=== PATIENT | male | born 1970 | race Caucasian/White ===

== ENCOUNTER → 2018-01-10 13:51 | Outpatient (CLI) | payer OTHER, MEDICAID ==
--- NOTE | ~2018-01-10 | ST ---
PATIENT:MIGUEL BEACH MEDICAL RECORD: [id number] SEX: M LOCATION:[facility] ORDER #: ADMISSION DATE: 01/10/18 AGE OF PATIENT: 47 REFERRING PHYSICIAN: INTERPRETING PHYSICIAN: DEON OLIVERA MD DATE OF SERVICE: 01/10/2018 EKG STRESS TEST INDICATION: Shortness of breath, abnormal ECG. He was exercised on standard Ronald protocol for 10 minutes, terminated due to achieving a max target heart rate response. The patient did have [address] depression with peak exercise. OVERALL IMPRESSION: Positive for inducible ischemia at adequate cardiac workload. We would repeat with the nuclear imaging or proceed with coronary angiography depending upon clinical situation. TRANSINT:[id number] Voice Confirmation ID: [id number] DOCUMENT ID: [id number] DEON OLIVERA MD CC: [id number] DICTATION DATE: 01/11/18 1134 BELT POLISHER: 01/12/18 0540 [facility] CLI 01/10/18 [place] [id number] [place] [id number]
== END | disposition home or self-care (01) ==
LOC: D.HCCARDIO 13:51
DX: R06.09 Other forms of dyspnea (principal)

== ENCOUNTER → 2018-01-24 08:35 | Outpatient (CLI) | payer OTHER, MEDICAID ==
--- NOTE | ~2018-01-24 | ST ---
PATIENT:MIGUEL BEACH MEDICAL RECORD: [id number] SEX: M LOCATION:[facility] ORDER #: ADMISSION DATE: 01/24/18 AGE OF PATIENT: 47 REFERRING PHYSICIAN: INTERPRETING PHYSICIAN: DEON OLIVERA MD DATE OF SERVICE: 01/24/2018 PROCEDURE: Nuclear stress test. INDICATION: Chest pain, abnormal ECG stress test, hypertension, shortness of breath. She was exercised on standard Ronald protocol for 10 minutes achieving greater than 85% maxillary heart rate response with 33 mCi of sestamibi injected at peak stress. Rest images were done previously with 11 mCi. FINDINGS: Gated SPECT reveals preserved ejection fraction at 60% with good wall motion and thickening and brightening throughout all segments. SPECT imaging Cardiolite was used as myocardial fusion agent. There is homogeneous uptake throughout all segments at rest and stress with no evidence of inducible ischemia or previous infarction. OVERALL IMPRESSION: 1. This is a normal nuclear stress test with no evidence of inducible ischemia or previous infarction. 2. Gated SPECT reveals a preserved ejection fraction at 60%. In this patient with ongoing symptomatology, the current scan does not suggest the presence of hemodynamically significant coronary artery disease. Evaluate noncardiac etiology of chest pain. TRANSINT:[id number] Voice Confirmation ID: [id number] DOCUMENT ID: [id number] DEON OLIVERA MD CC: MARY JANE PATINO DO [id number] DICTATION DATE: 01/25/18801 DIRECTOR EMERGENCY DEPARTMENT: 01/25/182055 [facility] CLI 01/24/18 [place] [id number] [place] [address]
== END | disposition home or self-care (01) ==
LOC: D.HCCARDIO 08:35
DX: R94.31 Abnormal electrocardiogram [ECG] [EKG] (principal)

== ENCOUNTER 2018-07-22 18:52 | Emergency (ER) | payer OTHER, MEDICAID ==
[2018-07-22 19:08] VITALS: BMI 28.9
[2018-07-22] MEDS ORDERED: BP PILL (19:09)
[2018-07-22 19:30] LABS: BASOPHILS 0.3 % (0-2); EOSINOPHILS 0.5 % (0-7); HEMATOCRIT 41.1 % (42.0-54.0); HEMOGLOBIN 14.8 g/dL (13.5-17.5); IMMATURE GRANULOCYTES 0.3 % (0-5); LYMPHOCYTES 12.4 % (15-50); MCH 31.6 pg (26.0-34.0); MCV 87.6 fL (80.0-100.0); MEAN PLATELET VOLUME 10.4 fL (7.4-10.4); MONOCYTES 7.9 % (2-11); NEUTROPHILS 78.6 % (40-80); PLATELET COUNT 174 10x3/uL (130-400); RBC 4.69 10x6/uL (4.20-6.10); RDW 12.7 % (11.5-14.5); WBC 14.4 10x3/uL (4.8-10.8)
[2018-07-22 19:39] LABS: APPEARANCE CLEAR (CLEAR); BILIRUBIN NEGATIVE (NEGATIVE); COLOR YELLOW (YELLOW); GLUCOSE NEGATIVE (NEGATIVE); KETONE NEGATIVE (NEGATIVE); NITRITE NEGATIVE (NEGATIVE); PROTEIN NEGATIVE (NEGATIVE); SPECIFIC GRAVITY 1.015 (1.005-1.020); UROBILINOGEN NORMAL (NORMAL)
[2018-07-22 19:40] LABS: BACTERIA FEW /hpf (NONE SEEN); WHITE CELLS - URINE OCC /hpf (0-5)
[2018-07-22 20:01] LABS: ALBUMIN 4.3 g/dL (3.4-5.0); ALKALINE PHOSPHATASE 56 U/L (46-116); ALT (SGPT) 43 U/L (10-68); BILIRUBIN - TOTAL 0.39 mg/dL (0.2-1.3); CALC OSMOLALITY 278 mosm/kg (275-300); CALCIUM 9.2 mg/dL (8.5-10.1); CHLORIDE - SERUM 103 mmol/L (98-107); CREATININE - SERUM 1.3 mg/dL (0.6-1.3); GLUCOSE 105 mg/dL (74-106); POTASSIUM - SERUM 3.9 mmol/L (3.5-5.1); PROTEIN - SERUM 8.4 g/dL (6.4-8.2); SODIUM 138 mmol/L (136-145); UREA NITROGEN 22 mg/dL (7-18); eGFR NON AFRICAN AMERICAN 63 mL/min (90-120)
[2018-07-22 20:03] LABS: AMYLASE - SERUM 42 U/L (25-115); LIPASE 123 U/L (73-393); TROPONIN-I < 0.017 ng/mL (0.000-0.060)
[2018-07-22] MEDS ORDERED: TORADOL10 MG PO (23:01)
[2018-07-22] MEDS ORDERED: FLOMAX0.4 MG PO (23:01)
[2018-07-22 23:21] VITALS: BP 188/106
[2018-07-24] MEDS ORDERED: HYDROCODON-ACE1 EAC7 PO (11:22)
[2018-07-24] MEDS ORDERED: NORVASC5 MG PO (11:23)
[2018-07-24] MEDS ORDERED: LOTENSIN20 MG PO (11:23)
[2018-07-24] MEDS ORDERED: TORADOL10 MG PO (11:25)
[2018-07-30 12:41] VITALS: BMI 25.8
== END 2018-07-22 23:20 | disposition home or self-care (01) ==
LOC: D.ER 18:52
PROVIDERS: Family Medicine
DX: N20.1 Calculus of ureter (principal)

== ENCOUNTER 2018-07-25 09:09 | Day surgery (SDC) | payer OTHER, MEDICAID ==
[~2018-07-25] VITALS: Ht 177.8 cm; Wt 90.3 kg
[~2018-07-25 09:09] MED LIST: BP PILL; FLOMAX0.4 MG PO; HYDROCODON-ACE1 EAC7 PO; LOTENSIN20 MG PO; NORVASC5 MG PO; TORADOL10 MG PO
[2018-07-25 11:26] LABS: HEMATOCRIT 39.5 % (42.0-54.0); HEMOGLOBIN 14.2 g/dL (13.5-17.5); MCH 31.5 pg (26.0-34.0); MCHC 35.9 g/dL (31.0-37.0); MCV 87.6 fL (80.0-100.0); RBC 4.51 10x6/uL (4.20-6.10); RDW 12.4 % (11.5-14.5)
[2018-07-25 11:53] VITALS: BP 170/97; Ht 177.8 cm; Wt 90.3 kg
--- NOTE | 2018-07-25 15:30 | NUR ---
REC'D FROM . FAMILY AT BEDSIDE. AMBULATED TO BATHROOM AND VOIDED WITHOUT DIFFICUTY. FL TRAY SERVED TO PATIENT.
--- NOTE | 2018-07-25 16:00 | NUR ---
TOLERATED FL DIET.
--- NOTE | 2018-07-25 16:35 | NUR ---
IV DC'D WITH CATHETER INTACT. WRITTEN AND VERBAL DC INST. GIVEN TO PT. VERBALIZED UNDERSTANDING.
--- NOTE | 2018-07-25 16:55 | NUR ---
DC'D HOME WITH FAMILY VIA PRIVATE VEHICLE. STABLE AT TIME OF DC.
--- NOTE | 2018-07-26 09:28 | OP ---
PATIENT NAME: MIGUEL BEACH MEDICAL RECORD: [id number] :70 LOCATION:[facility] ADMISSION DATE: SURGEON: RAMON LOPEZ MD DATE OF OPERATION: 07/25/2018 SURGEON: Ramon Lopez MD ANESTHESIA: General anesthesia by Leti Huynh CRNA. DIAGNOSIS: Right proximal ureteral stones times 2, largest is 7 mm in size. PROCEDURE: Right ESWL times 3000 shocks. Cystoscopy and right ureteral stent insertion 6-Mozambican x 26 cm with string attached. FINDINGS: Radiodense right proximal ureteral stones. These were pushed back into the renal pelvis during stent insertion. On cystoscopy, there was an elevated bladder neck of the prostate. Single ureteral orifices bilaterally with no bladder tumors. ESTIMATED BLOOD LOSS: None. CLINICAL HISTORY: This is a 47-year-old male, who came to the Emergency Room on 07/22/18 with acute right upper quadrant abdominal pain, nausea and vomiting. He has not had previous history of kidney stones. The CT scan of the abdomen and pelvis shows 2 stones at the right UP junction, the largest of which is 7 mm in size. There is hydronephrosis present. He comes today to have these stones treated with ESWL. We will also be inserting a right ureteral stent. He is not allergic to any medications. He was given Ancef automation technician to the OR. DESCRIPTION OF PROCEDURE: The patient was given induction of general anesthesia in supine position. He was then targeted in 2 planes and we could see the 2 stones. The stones were being shocks. In the meantime, we also prepped and draped him. A 21-Mozambican cystoscope with 30-degree lens was used for visualization. There are no penile urethral strictures. The prostate lateral lobes are not obstructive, but he does have a tall bladder neck. Going into the bladder, there are single ureteral orifices on each side. There are no bladder tumors. A Sensor wire was placed up the right ureteral orifice into the right renal pelvis. We had some obstruction at the level of the stones, but the stone gave way and the wire could get past them. In the process of dislodging the stones, the stones went back into the renal pelvis. Over the wire, we inserted the 6-Mozambican x 26 cm ureteral stent. Once the stent was in correct position, the wire was withdrawn entirely. The distal end of the stent was pushed into the bladder using the pusher. The scope was then used to empty the bladder and the scope was removed. The string on the distal end of stent is maintained and it hangs out of the urethra. It was tied to itself in a knot and cut shorter. The stones were retargeted and the remaining shocks were given to give a total of 3000 shocks. The stones were seen to break up. I will see him in followup in 2 weeks' time with a KUB. If the stone has broken up and completely left the system by that time, then the stent can be removed. TRANSINT:[id number] Voice Confirmation ID: [id number] DOCUMENT ID: [id number] OPERATIVE REPORT [id number] MIGUEL BEACH ROBERT S MD at 0928 CC: [id number] DICTATION DATE: 07/25/18 1453 CEMENT TRUCK DRIVER: 07/25/18 1601 [facility] 07/25/18 [facility] [address] [place] [address]
== END 2018-07-25 16:55 | disposition home or self-care (01) ==
LOC: D.OPS 09:09 → D.PAN 11:45 → D.OPS 11:45
PROVIDERS: Anesthesiology; ATTEND Urology
DX: N20.0 Calculus of kidney (principal)

== ENCOUNTER 2018-07-29 18:05 | Inpatient (IN) | payer OTHER, MEDICAID ==
[~2018-07-29] VITALS: Ht 177.8 cm; Wt 81.8 kg
[2018-07-29 18:53] LABS: BASOPHILS 0.1 % (0-2); EOSINOPHILS 0.3 % (0-7); HEMATOCRIT 34.5 % (42.0-54.0); HEMOGLOBIN 12.8 g/dL (13.5-17.5); IMMATURE GRANULOCYTES 0.2 % (0-5); LYMPHOCYTES 4.3 % (15-50); MCH 31.6 pg (26.0-34.0); MCHC 37.1 g/dL (31.0-37.0); MCV 85.2 fL (80.0-100.0); MEAN PLATELET VOLUME 11.1 fL (7.4-10.4); MONOCYTES 7.2 % (2-11); NEUTROPHILS 87.9 % (40-80); RBC 4.05 10x6/uL (4.20-6.10); RDW 12.5 % (11.5-14.5); WBC 16.4 10x3/uL (4.8-10.8)
[2018-07-29 19:03] LABS: PLATELET COUNT 129 10x3/uL (130-400)
[2018-07-29 19:06] LABS: APPEARANCE HAZY (CLEAR); BILIRUBIN NEGATIVE (NEGATIVE); COLOR YELLOW (YELLOW); GLUCOSE NEGATIVE (NEGATIVE); KETONE NEGATIVE (NEGATIVE); NITRITE NEGATIVE (NEGATIVE); PROTEIN 1+ mg/dL (NEGATIVE); SPECIFIC GRAVITY 1.015 (1.005-1.020); UROBILINOGEN NORMAL (NORMAL)
[2018-07-29 19:07] LABS: BACTERIA MANY /hpf (NONE SEEN); MUCUS <1+ /lpf (NONE SEEN); RED CELLS - URINE 25-50 /hpf (0-5); WHITE CELLS - URINE 25-50 /hpf (0-5)
[2018-07-29 19:08] LABS: ALBUMIN 2.9 g/dL (3.4-5.0); ANION GAP 13.9 mmol/L (8-16); BILIRUBIN - TOTAL 0.56 mg/dL (0.2-1.3); CALCIUM 8.6 mg/dL (8.5-10.1); CARBON DIOXIDE 26.2 mmol/L (21.0-32.0); CREATININE - SERUM 2.4 mg/dL (0.6-1.3); POTASSIUM - SERUM 3.1 mmol/L (3.5-5.1); PROTEIN - SERUM 7.8 g/dL (6.4-8.2)
--- NOTE | 2018-07-29 21:30 | NUR ---
VANCOMYCIN AND 1500ML BOLUS NS COMPLETE
--- NOTE | 2018-07-29 22:09 | NUR ---
RECEIVED PT TO ROOM 2128 VIA WHEELCHAIR, PT WAS ABLE TO TRANSFERED FROM WHEELCHAIR TO BED WITH STEADY GATE. PT A/O X4, RESP EVEN AND NONLABORED ON RA, ORIENTED PT TO ROOM AND CALL LIGHT. RT AC INFUSING NS AT 150. PT DENIES ANY PAIN OR NEEDS AT THIS TIME. WILL ASSESS PT AND START PLAN OF CARE.
[2018-07-30 00:47] VITALS: BMI 25.8
[2018-07-30 04:00] VITALS: BP 109/61
--- NOTE | 2018-07-30 06:01 | NUR ---
PT HAD AN ACCIDENT ON THE BED, REQUESTED SUPPLIES TO GET IN SHOWER. PROVIDED SUPPLIES FOR SHOWER AND COMPLETE LINEN CHANGE PROVIDED. PT DENIES ANY OTHER NEEDS AT THIS TIME. CALL LIGHT IN REACH, NAD NOTED.
[2018-07-30 06:05] LABS: BASOPHILS 0.1 % (0-2); HEMATOCRIT 33.9 % (42.0-54.0); IMMATURE GRANULOCYTES 0.4 % (0-5); LYMPHOCYTES 2.8 % (15-50); MCH 30.5 pg (26.0-34.0); MCHC 35.4 g/dL (31.0-37.0); MCV 86.3 fL (80.0-100.0); MEAN PLATELET VOLUME 11.6 fL (7.4-10.4); MONOCYTES 8.9 % (2-11); NEUTROPHILS 86.8 % (40-80); PLATELET COUNT 129 10x3/uL (130-400); RBC 3.93 10x6/uL (4.20-6.10); RDW 12.9 % (11.5-14.5); WBC 13.4 10x3/uL (4.8-10.8)
[2018-07-30 06:36] LABS: ALBUMIN 2.5 g/dL (3.4-5.0); ANION GAP 15.2 mmol/L (8-16); BILIRUBIN - TOTAL 0.57 mg/dL (0.2-1.3); CALCIUM 8.1 mg/dL (8.5-10.1); CARBON DIOXIDE 23.1 mmol/L (21.0-32.0); CREATININE - SERUM 1.9 mg/dL (0.6-1.3); POTASSIUM - SERUM 3.3 mmol/L (3.5-5.1); PROTEIN - SERUM 7.2 g/dL (6.4-8.2)
--- NOTE | 2018-07-30 07:00 | NUR ---
RECEIVED REPORT. ASSUMED CARE OF PATIENT. RESTING IN BED WITH EYES CLOSED. RESP EVEN AND UNLABORED. NO DISTRESS. EASILY AROUSED. CALL LIGHT WITHIN REACH. IV FLUIDS INFUSING ORDERED.
[2018-07-30 08:15] VITALS: BP 128/71
--- NOTE | 2018-07-30 09:18 | NUR ---
20 GAUGE IV TO LEFT FOREARM X 1 STICK. GOOD BLLOD RETURN, EASY FLUSH. TOLERATED IV PLACEMENT WELL. TAPED, DATED AND SECURED. 18 GAUGE IV REMOVED FROM RIGHT AC. IV DISLODGED FROM ARM. CATHETER TIP INTACT. TOLERATED IV REMOVAL WELL. NO DISTRESS. 2X2 GAUZE APPLIED AND SECURED WITH TAPE.
[2018-07-30 11:48] VITALS: BP 129/77
[2018-07-30 12:41] VITALS: Ht 177.8 cm; Wt 81.8 kg
[2018-07-30 13:20] LABS: % SATURATION 7 % (15-55); IRON 12 ug/dl (35-150); TOTAL IRON BIND CAPACITY 164 ug/dl (260-445); UNSAT IRON BIND CAPACITY 152 ug/dl (150-375)
[2018-07-30 15:09] VITALS: BP 147/78
--- NOTE | 2018-07-30 15:32 | NUR ---
PATIENT REFUSED SCD'S. PATIENT UP AMBULATING FREQUENTLY. PATIENT COMPLAINING THAT CONTINUOUS IV MAKES IT DIFFICULT FOR HIM TO GET AROUND ALSO AT THIS TIME.
--- NOTE | 2018-07-30 17:00 | NUR ---
CALLED TO PATIENT ROOM. PATIENT STATES HE THINKS HE IS BETTER AND THAT HE CAN'T STAY HERE. PATIENT PULLING OFF HIS GOWN AND PULLING AT IV. ASKED PATIENT NOT TO PULL MONITOR OR IV OUT. TRIED TO EXPLAIN TO PATIENT THAT IT WAS WITHIN HIS BEST INTEREST TO STAY AND CONTINUE TREATMENT TO GET HIM WELL. PATIENT STATES "I DON'T CARE IF I , I CAN'T STAY HERE. MY NIECE IS HAVING HEART SURGERY AND I NEED TO BE THERE FOR HER". RISK/BENEFITS OF CONTINUING TREATMENT PROVIDED AGAIN. PATIENT GETTING DRESSED. LEONARD HAS A MALE VISITOR ABOUT 1500 THAT BROUGHT HIM NEW CLOTHES TO WEAR, PATIENT IS NOW DRESSED IN THOSE NEW CLOTHES AND HIS BEHAVIOR HAS DRASTICALLY CHANGED SINCE THIS VISITOR CAME. CALLED AND SPOKE WITH HOLDEN, STEFANO WAS ALREADY GONE, AND SHE STATED SHE WOULD LET KNOW WHAT WAS GOING ON. INFORMED HER HE IS ABOUT TO LEAVE AMA. AMA PAPER WORK PRINTED. PATIENTS AUNT CALLED AND STATED SHE IS STUCK IN TRAFFIC IN [place] BUT IS ON HER WAY TO GET HIM. INFORMED PATIENT THAT SHE IS ON HER WAY, SHE WOULD BE HERE IN ABOUT AN HOUR AND PATIENT STILL PACING ROOM BUT STATED OKAY AND AGREED TO LEAVE IV IN WITH FLUIDS RUNNING AND TELEMETRY ON UNTIL HIS AUNT GOT HERE.
[2018-07-30 18:38] LABS: UDS - AMPHET NEGATIVE QUAL (NEGATIVE); UDS - BARB NEGATIVE QUAL (NEGATIVE); UDS - BENZO NEGATIVE QUAL (NEGATIVE); UDS - COCAINE NEGATIVE QUAL (NEGATIVE); UDS - OPIATE POSITIVE QUAL (NEGATIVE); UDS - PCP NEGATIVE QUAL (NEGATIVE); UDS - THC NEGATIVE QUAL (NEGATIVE)
--- NOTE | 2018-07-30 18:45 | NUR ---
1840 PATIENT SIGNED HIS AMA PAPERWORK. PATIENT REFUSED TO WAIT UNTIL ORGANISM IS IDENTIFIED IN URINE PRIOR TO LEAVING. PATIENT HAD HIS AUNT COME AND PICK HIM UP. PATIENTS AUNT TRIED TO GET HIM TO STAY BUT PATIENT REFUSED. 20 GUAGE IV REMOVED FROM RIGHT FOREARM, CATHETER TIP INTACT. 2X2 GAUZE APPLIED AND SECURED WITH TAPE. NO BLEEING FROM SITE. TELEMETRY REMOVED AND RETURNED TO [facility]. YARITZAN AMBULATED OFF UNIT WITH ALL PERSONAL BELONGINGS IN NO NO ACUTE DISTRESS. MADE AWARE.
--- NOTE | 2018-07-31 09:01 | MORECARE ---
CASE MANAGEMENT DISCHARGE SUMMARY PATIENT: MIGUEL BEACH UNIT: [id number] ADM DATE: 07/29/18 AGE: 47 : 70 SEX: M ROOM/BED: D.9824 AUTHOR: PANDA MCKEE PHYSICIAN: REFERRING PHYSICIAN: RUT BAHENA MD DATE OF SERVICE: 07/31/18 Discharge Plan Patient Name: MIGUEL BEACH [facility] [facility] 1970 Planned Disposition: Left Against Medical Advice Anticipated Discharge Date: 07/30/18 Discharge Date: 07/30/2018 Expected LOS: 1 Initial Reviewer: [email or web address] Initial Review Date: 07/31/2018 Generated: 07/31/18 10:01 am Patient Name: MIGUEL BEACH Page [id number] at 0901 All edits/amendments must be made on the electronic document DICTATION DATE: 07/31/18900 INDUCTION BRAZER: [email or web address] 07/31/18900 RPT#: [id number] DC DATE:07/30/18 STATUS: DIS IN [facility] [address] [place] [address] END OF REPORT
== END 2018-07-30 18:45 | disposition left against medical advice (07) | DRG 699 ==
LOC: D.ER 18:05 → D.M2 20:55
PROVIDERS: Family Medicine; ADMIT Internal Medicine Nephrology; ATTEND Internal Medicine Nephrology
DX: T83.592A Infection and inflammatory reaction due to indwelling ureteral stent, initial encounter (principal); N20.1 Calculus of ureter; N17.9 Acute kidney failure, unspecified; E87.1 Hypo-osmolality and hyponatremia; F17.213 Nicotine dependence, cigarettes, with withdrawal; D50.9 Iron deficiency anemia, unspecified; D69.6 Thrombocytopenia, unspecified; G40.909 Epilepsy, unspecified, not intractable, without status epilepticus; E87.6 Hypokalemia; I10 Essential (primary) hypertension; Y83.9 Surgical procedure, unspecified as the cause of abnormal reaction of the patient, or of later complication, without mention of misadventure at the time of the procedure

== ENCOUNTER → 2018-08-09 09:43 | Outpatient (CLI) | payer OTHER, MEDICAID ==
[2018-07-30 12:41] VITALS: BMI 25.8
== END | disposition home or self-care (01) ==
LOC: D.RAD 09:00
PROVIDERS: ATTEND Urology
DX: N20.0 Calculus of kidney (principal); N39.0 Urinary tract infection, site not specified

== ENCOUNTER → 2018-08-09 19:36 | Outpatient (CLI) | payer OTHER, MEDICAID ==
[2018-07-30 12:41] VITALS: BMI 25.8
== END | disposition home or self-care (01) ==
LOC: D.LABREF 19:36
PROVIDERS: ATTEND Urology
DX: N39.0 Urinary tract infection, site not specified (principal); N20.0 Calculus of kidney

== ENCOUNTER → 2018-08-23 16:34 | Outpatient (CLI) | payer OTHER, MEDICAID ==
[2018-07-30 12:41] VITALS: BMI 25.8
== END | disposition home or self-care (01) ==
LOC: D.LABREF 16:34
PROVIDERS: ATTEND Urology
DX: D72.829 Elevated white blood cell count, unspecified (principal)